=== PATIENT | male | born 1995 | race Caucasian/White ===

== ENCOUNTER 2019-12-11 21:10 | Outpatient (REF) | payer MEDICAID, SELFPAY ==
[2019-12-11 19:24] LABS: Calculated LDL 68 mg/dL (<100); Cholesterol 119 mg/dL (<200); HDL Cholesterol 45 mg/dL (40-60); Triglyceride 33 mg/dL (<150)
== END 2019-12-11 21:30 ==
LOC: NCHCN 21:10
PROVIDERS: PCP Family Medicine; Visit Provider Family Medicine
DX: Z13.220 Encounter for screening for lipoid disorders (principal)
CPT/HCPCS: 80061

== ENCOUNTER 2024-01-10 20:04 | Outpatient (REF) | payer MEDICAID, SELFPAY ==
[2024-01-10 20:31] LABS: Abs Immature Grans 0.02 10^3/uL (0.0-0.06); Absolute Basophil Count 0.04 10^3/uL (0.0-0.2); Absolute Eosinophil Count 0.07 10^3/uL (0.0-0.7); Absolute Lymphocyte Count 1.27 10^3/uL (1.2-3.4); Absolute Monocyte Count 0.47 10^3/uL (0.1-0.8); Absolute Neutrophil Count 2.45 10^3/uL (1.2-6.7); Basophils % 0.9 %; Eosinophils % 1.6 %; HCT 41.2 % (40.0-50.0); HGB 13.5 g/dL (13.5-17.5); Immature Grans % 0.5 %; Lymphocytes % 29.4 %; MCH 29.5 pg (27.0-33.0); MCHC 32.8 % (32.0-36.0); MCV 90 fL (80-95); MPV 10.2 fL (8.0-11.0); Monocytes % 10.9 %; Neutrophils % 56.7 %; Platelet Count 256 10^3/uL (130-400); RBC 4.58 10^6/uL (4.36-5.78); RDW 12.5 % (11.8-14.1); RDW-SD 41.3 fL; WBC 4.32 10^3/uL (4.4-10.8)
[2024-01-10 20:48] LABS: ALT 37 U/L (16-63); AST 19 U/L (15-37); Albumin 4.2 g/dL (3.4-5.0); Alkaline Phosphatase 64 U/L (46-116); Anion Gap 4.8 mmol/L (3-11); BUN 26 mg/dL (7-18); Bilirubin, Total 0.62 mg/dL (0.2-1.0); CO2 30.2 mmol/L (21.0-32.0); CREATININE 1.2 mg/dL (0.70-1.30); Calcium 9.2 mg/dL (8.5-10.1); Chloride 100 mmol/L (98-107); Cholesterol 135 mg/dL (<200); Estimated GFR 83.95 (mL/min/1.73m2); Glucose 71 mg/dL (74-106); HDL Cholesterol 67 mg/dL (40-60); Potassium 3.8 mmol/L (3.5-5.1); Sodium 135 mmol/L (136-145); TSH (W/Ref FT4) 2.43 uIU/mL (0.36-3.74); Total Protein 7.4 g/dL (6.4-8.2)
[2024-01-10 20:51] LABS: Triglyceride <25 mg/dL (<150)
[2024-01-10 21:03] LABS: LDL CHOLESTEROL 60 mg/dL (<100)
[2024-01-10 21:15] LABS: Hemoglobin A1C 5.1 % (<5.7)
[2024-01-11 18:04] LABS: CRP, High Sensitivity <0.34 mg/L (See Note)
== END 2024-01-10 20:05 | disposition home or self-care (01) ==
LOC: NCHCN 20:04
PROVIDERS: PCP Family Medicine; Visit Provider Family Medicine
DX: R63.4 Abnormal weight loss (principal)
CPT/HCPCS: 80053; 80061; 83721; 86141; 83036; 84443; 85025